=== PATIENT | female | born 2000 | race Caucasian/White ===

== ENCOUNTER 2023-07-01 18:42 | Emergency (ER) | payer BC, SELFPAY ==
[2023-07-01 18:45] VITALS: BP 165/97
[2023-07-01 19:30] LABS: % Basophils 0.4 % (0-2); % Eosinophils 1.6 % (0-6); % Immature Granulocytes 0.3 % (0-0.5); % Lymphocytes 25.2 % (20.5-51.1); % Monocytes 4.9 % (1.7-9.3); % Neutrophils 67.6 % (42.2-75.2); Absolute Basophils 0.1 10^3/uL (0-0.2); Absolute Eosinophils 0.2 10^3/uL (0-0.7); Absolute Monocytes 0.6 10^3/uL (0.1-0.6); Absolute Neutrophils 8.1 10^3/uL (1.4-6.5); Hematocrit 36.4 % (37.0-47.0); Hemoglobin 12.3 g/dL (12.0-16.0); Mean Corp Hgb Conc. 33.8 g/dL (33.0-37.0); Mean Corpuscular Hgb 27.3 pg (27.0-31.0); Mean Corpuscular Volume 80.9 fL (81.0-99.0); Mean Platelet Volume 9.2 fL (7.4-10.4); Nucleated Red Blood Cells % 0 %; Platelet Count 381 10^3/uL (130-400); Red Cell Dist. Width 11.9 % (11.5-14.5)
[2023-07-01 19:41] LABS: HCG, Serum Qualitative Screen Negative
[2023-07-01 19:51] LABS: ALT (SGPT) 24 U/L (0-35); AST (SGOT) 25 U/L (14-36); Albumin 4.7 g/dl (3.5-5.0); Alkaline Phosphatase 69 U/L (38-126); Blood Urea Nitrogen 15 mg/dl (7-17); Carbon Dioxide 22 mmol/L (22-30); Chloride 102 mmol/L (98-107); Glucose 95 mg/dl (70-99); Sodium 139 mmol/L (135-145); Total Bilirubin 0.4 mg/dl (0.2-1.3); Total Protein 8.1 g/dl (6.3-8.2); eGFR > 60.00
[2023-07-01 19:59] LABS: Potassium 3.9 mmol/L (3.5-5.1)
[2023-07-01 21:22] VITALS: BP 128/85
--- NOTE | 2023-07-01 21:24 | ED.GENMED ---
History of Present Illness
General
Chief Complaint: Dizziness
Source: patient and significant other
Exam Limitations: none
Time Seen by Provider: 07/01/23 20:40
Travel History
Have you had any contact with someone who has COVID-19?: No
Do you have any symptoms of coronavirus? Fever > 100 degrees, chills, cough, shortness of breath, sore throat, loss of taste or smell, muscle aches, or headache?: No
History of Present Illness
History of Present Illness:
22-year-old female who presents after variety of symptoms occurred since last night. Patient states that she went to bed around midnight and prior to going to bed she just sort of felt like she had been drinking but was not drinking alcohol.
Patient she was a little bit lightheaded and then when she woke up in the morning felt like she had room spinning dizziness like she had been drinking. Patient states that she was able to go to work without difficulty. Around lunch she still felt
a little bit lightheaded. Later in the evening she began to feel like her left leg was tingling. She states now she feels back to normal. She is mostly worried about her leg. However, again, her symptoms have resolved
Past History
Past History
ED Past Medical History: None
ED Past Surgical History: None
Social History
Tobacco: Non-smoker
Alcohol: Occasional
Drug: None
Phy Exam
Physical Exam
Physical Exam:
CONSTITUTIONAL Patient alert and oriented to person, place and time. Well-appearing. Vital signs reviewed.
HEAD atraumatic, normocephalic.
EYES eyelids normal to inspection, Pupils equally round and reactive to light, Extraocular muscles intact, Conjunctiva normal, Sclera normal.
NECK normal range of motion, Trachea midline, no jugular venous distention.
RESPIRATORY CHEST No respiratory distress noted, Chest expansion equal, Bilateral breath sounds clear.
CARDIOVASCULAR regular rate and rhythm, Heart sounds normal.
ABDOMEN abdomen nontender, Bowel sounds normal. No distention.
BACK normal inspection, no obvious deformities
UPPER EXTREMITY range of motion normal, Motor strength normal, no cyanosis, no edema.
LOWER EXTREMITY range of motion normal, Motor strength normal, no cyanosis, no edema. Normal bilateral dorsalis pedis pulses. Normal bilateral posterior tibial pulses.
NEURO Speech normal, No focal motor deficits, Mather coma scale 15, Memory normal, Cranial Nerves intact to screening exam. No pronator drift. Normal [id number].
SKIN skin warm, dry, and normal in color.
PSYCHIATRIC patient oriented to person place and time, Normal affect.
Course
Orders/Labs/Results
Orders:
Orders
07/01/23 19:10
Test Result ONCE
07/01/23 19:22
CBC/With Diff [Complete Blood Count/With Diff] Urgent
CMP [Comprehensive Metabolic Panel] Urgent
HCG, Serum Qualitative Screen Urgent
07/01/23 21:17
Vital Signs- Treatment ONCE
Frequency: Once
Abnormal Lab Results
07/01/23
19:22
WBC 12.0 H 10^3/uL
(4.8-10.8)
Hct 36.4 L %
(37.0-47.0)
MCV 80.9 L fL
(81.0-99.0)
Absolute Neuts (auto) 8.1 H 10^3/uL
(1.4-6.5)
07/01/23 19:22
07/01/23 19:22
Vital Signs
Initial and Last Documented VS:
Initial Vital Signs
Temp Pulse Resp BP Pulse Ox
98.1 F 103 18 165/97 97
07/01/23 18:45 07/01/23 18:45 07/01/23 18:45 07/01/23 18:45 07/01/23 18:45
Last Documented Vital Signs
Temp Pulse Resp BP Pulse Ox
98.1 F 91 18 128/85 100
07/01/23 18:45 07/01/23 21:22 07/01/23 21:22 07/01/23 21:22 07/01/23 21:22
MDM/Problems Addressed
MDM/Problems Addressed:
Dizziness, foot tingling
*Pulse Oximetry
Patient hypoxic: no
*Critical Care Note
Total Time (30-74mins, 75-104mins- exclusive of procedures): Not Applicable
Data Reviewed
Source: patient
Further Testing Considered But Not Given:
Considered head CT but normal neuroassessment.
Patient Management
Escalation/DeEscalation of care consider admission/obs:
Patient appears quite well. Her exam is normal. Her symptoms of all resolved. Do not suspect focal neuro event. Do not suspect demyelinating disease but will recommend follow-up if any symptoms recur
ED Attending Note
-
Portions of this chart may have been created with voice recognition software.� Occasional wrong word or��sound alike� substitutions may have occurred due to the inherent limitations of voice recognition software.
Discharge Plan
Departure
Patient Disposition: Home (Routine Discharge)
Date of Disposition: 07/01/23
Time of Disposition: 21:37
Patient with high blood pressure during this ER visit?: No
Discharge Problem:
Dizziness
Instructions: Dizziness
Activity Restrictions/Additional Instructions:
Please see your doctor in the next 2 to 3 days for follow-up and reevaluation. If symptoms recur, further workup may be necessary. Return immediately for motor weakness, speech changes, headache, vision changes, numbness, tingling or any other
concerns.
== END 2023-07-01 21:52 | disposition home or self-care (01) ==
LOC: EMR 18:42
PROVIDERS: Emergency Medicine; EMERGENCY PHYSICIAN Emergency Medicine
DX: R42 Dizziness and giddiness (principal)
CPT/HCPCS: 99283; 80053; 84703; 85025

== ENCOUNTER → 2023-11-19 13:32 | Outpatient (REF) | payer BC, SELFPAY | LOC: HWRAD 13:32 | PROVIDERS: ATTENDING PHYSICIAN Internal Medicine Endocrinology, Diabetes & Metabolism; FAMILY PHYSICIAN Student in an Organized Health Care Education/Training Program | DX: E28.2 Polycystic ovarian syndrome (principal) | CPT/HCPCS: 76830; 76856 ==